=== PATIENT | male | born 1935 | race Caucasian/White ===

== ENCOUNTER 2019-02-27 03:40 | Outpatient (RCR) | payer MEDICARE, SELFPAY | END 2019-03-12 00:01 | LOC: LAB 03:40 | PROVIDERS: Family Provider Family Medicine; Visit Provider Nurse Practitioner Family | DX: M86.9 Osteomyelitis, unspecified (principal); N18.3 Chronic kidney disease, stage 3 (moderate); D64.9 Anemia, unspecified; R41.82 Altered mental status, unspecified; R63.0 Anorexia | CPT/HCPCS: 36415 ×3; 80048; 82607; 82728; 82746; 83540; 83550; 85025 ×3 ==